=== PATIENT | female | born 1965 | race Caucasian/White ===

== ENCOUNTER 2025-05-31 07:45 | Emergency (ER) | payer OTHER, SELFPAY ==
[2025-05-31 07:51] VITALS: BP 113/74
--- NOTE | 2025-05-31 10:00 | ED.GENMED ---
History of Present Illness
General
Chief Complaint: Musculo-Skeletal Complaint
Source: patient
Exam Limitations: none
Time Seen by Provider: 05/31/25 09:37
Nursing documentation reviewed up to this point in time: agreed with
History of Present Illness
History of Present Illness:
Patient with history of previous shoulder pain, secondary to arthritis, requiring injection at [facility], scheduled for right knee replacement next month, presents to ED secondary to worsening right shoulder pain over the past 24 hours.
Denies direct trauma. Denies loss of sensation or weakness. Denies fever or chills. However, patient does report having moved heavy objects, secondary to severe windy condition outside 2 days prior. Patient reports pain at rest, but worse with
any shoulder movement. Patient has been icing the shoulder with mild improvement.
Past History
Past History
ED Past Medical History: HTN, Hypercholesterolemia and Other (Carpal tunnel syndrome, migraine headache, right sciatica)
ED Past Surgical History: None
Social History
Tobacco: Non-smoker
Alcohol: Occasional
Personal:
Living: with family
Family History
Family History: Other (Both parents with CAD)
Review of Systems
Review of Systems
Allergies reviewed?: Yes
All Other Systems: ROS reviewed and negative except as documented in HPI and ROS
Constitutional: Reports no symptoms; Denies fever
Musculoskeletal: Reports other (Shoulder pain)
Skin: Reports no symptoms
Neurological: Reports no symptoms
Phy Exam
Physical Exam
Physical Exam:
Physical Exam
General: mild distress, not acutely ill. afebrile
Head: nc/at. eomi
Neck: supple. normal range of motion. no midline tenderness
Neuro: alert and oriented x 3. no focal neurological deficits
Skin: no rash
Psychiatric: well kept. interactive and cooperative
Extremities: diffuse right shoulder tenderness to palpation, without ecchymosis/erythema/swelling, worse with range of motion.
Course
Orders/Labs/Results
Orders:
Orders
05/31/25 07:57
Shoulder, Right, Trauma [CR Shoulder, Trauma - Right] Urgent
Comment:
Reason For Exam: pain denies injury
05/31/25 10:15
Shoulder Immobilizer Right- Tx ONCE
Dexamethasone Pf [Decadron] 10 mg PO NOW STA
Vital Signs
Initial and Last Documented VS:
Initial Vital Signs
Temp Pulse Resp BP Pulse Ox
98.7 F 99 16 113/74 96
05/31/25 07:51 05/31/25 07:51 05/31/25 07:51 05/31/25 07:51 05/31/25 07:51
Last Documented Vital Signs
Temp Pulse Resp BP Pulse Ox
98.7 F 99 16 113/74 96
05/31/25 07:51 05/31/25 07:51 05/31/25 07:51 05/31/25 07:51 05/31/25 10:10
MDM/Problems Addressed
MDM/Problems Addressed:
X-ray report reviewed and discussed with patient. History and exam consistent with likely underlying arthritis versus rotator cuff injury, exacerbated by recent movement of heavy objects. Patient otherwise is afebrile, hemodynamically stable, and
neurologically intact at time of discharge. Patient will be provided with arm sling for comfort, with recommendation to contact her orthopedic surgeon at [facility] for reevaluation, including potential MRI as an outpatient. Pt will be
provided with arm sling for comfort along with short course of percocet
*Pulse Oximetry
SaO2: 96
Oxygen Mode of Delivery: Room air
Patient hypoxic: no
*Critical Care Note
Total Time (30-74mins, 75-104mins- exclusive of procedures): Not Applicable
ED Attending Note
-
Portions of this chart may have been created with voice recognition software.� Occasional wrong word or��sound alike� substitutions may have occurred due to the inherent limitations of voice recognition software.
Discharge Plan
Departure
Patient Disposition: Home (Routine Discharge)
Date of Disposition: 05/31/25
Time of Disposition: 10:13
Patient with high blood pressure during this ER visit?: No
Condition: Fair
Discharge Problem:
Shoulder pain
Instructions: How to Use a Shoulder Sling, Shoulder pain - ED (DC)
Prescriptions:
New
oxycodone-acetaminophen [Percocet] 5-325 mg Tablet
1 tab PO Q6HPRN PRN (Reason: pain) Qty: 12 0RF
No Action
amitriptyline 25 MG tablet
50 mg PO HS
Hydrochlorothiazide
25 mg PO DAILY
cyclobenzaprine 10 MG tablet
10 mg PO TIDPRN PRN (Reason: muscle spasm)
atorvastatin 10 MG tablet
10 mg PO DAILY
topiramate [Topamax] 25 MG tablet
50 mg PO HS
tramadol 50 MG tablet
50 mg PO Q6H PRN (Reason: pain)
[id number] [Fiorinal-Codeine #3] 1 EACH capsule
1 ea PO DAILY PRN (Reason: migraine)
levothyroxine 50 MCG tablet
50 mcg PO DAILY
omeprazole 20 MG capsule,delayed release(DR/EC)
20 mg PO DAILY
vitamin B complex 1 TAB tablet
1 tab PO DAILY
estradiol-norethindrone acet [Activella] 1 TAB tablet
1 tab PO DAILY
magnesium oxide 400 MG capsule
400 mg PO DAILY
rizatriptan [Maxalt] 10 MG tablet
10 mg PO PRN PRN (Reason: migraines)
pantoprazole 40 MG tablet,delayed release (DR/EC)
40 mg PO DAILY Qty: 14 0RF
amoxicillin-pot clavulanate 1 TABLET tablet
1 tab PO Q12 Qty: 20 0RF
dicyclomine 10 MG capsule
10 mg PO QIDPRN PRN (Reason: abd spasm) Qty: 14 0RF
Referrals:
Dylon Taylor MD [Family Provider, [facility]]
Stand Alone Forms: Return to Work
Activity Restrictions/Additional Instructions:
As discussed, please follow-up with your primary care physician and/or orthopedic surgeon for reevaluation. Your prescription has been sent electronically to [facility] pharmacy in [place].
Interventions
Interventions:
*Neglect/Abuse Screening Last Done: 05/31/25 07:51
*Risk Screen - Suicide (C-SSRS) Last Done: 05/31/25 07:51
*Nursing Disposition Last Done: 05/31/25 10:34
ED-Musculoskeletal Assessment Last Done: 05/31/25 10:33
Discharge Date and Time
Discharge Date/Time: 05/31/25 10:34
Print Language: FRENCH
[2025-05-31] MEDS: DECADRON 10 MG PO (10:19)
== END 2025-05-31 10:34 | disposition home or self-care (01) ==
LOC: EMR 07:45
PROVIDERS: EMERGENCY PHYSICIAN Emergency Medicine; FAMILY PHYSICIAN Family Medicine
DX: M25.511 Pain in right shoulder (principal); X50.0XXA Overexertion from strenuous movement or load, initial encounter; M19.011 Primary osteoarthritis, right shoulder; I10 Essential (primary) hypertension; E78.00 Pure hypercholesterolemia, unspecified; G43.909 Migraine, unspecified, not intractable, without status migrainosus; Z82.49 Family history of ischemic heart disease and other diseases of the circulatory system
CPT/HCPCS: 99283; 73030